=== PATIENT | male | born 1950 | race Caucasian/White ===

== ENCOUNTER 2020-05-09 12:17 | Emergency (ER) | payer OTHER, MEDICARE, BC ==
[~2020-05-09] VITALS: Ht 180.3 cm; Wt 86.2 kg
== END 2020-05-09 16:34 | disposition home or self-care (01) ==
LOC: ED 12:17
DX: S01.311A Laceration without foreign body of right ear, initial encounter (principal); S51.811A Laceration without foreign body of right forearm, initial encounter; V48.6XXA Car passenger injured in noncollision transport accident in traffic accident, initial encounter
CPT/HCPCS: 12013; 70450; 71260; 72125; 74177; 80053; 82150; 82550; 83690; 85025; 99284-25; G0480; Q9967